=== PATIENT | female | born 1960 | race Caucasian/White ===

== ENCOUNTER 2017-02-14 17:26 | Emergency (ER) | payer MEDICARE, OTHER ==
[2017-02-14 17:30] VITALS: TEMP 98.1
[2017-02-14] MEDS ORDERED: Acetaminophen-Codeine 300-30mg TAB PO STA (18:24)
--- NOTE | 2017-02-14 18:29 | ED ---
Fall HPI - General Chief Complaint: Fall Stated Complaint: Fall Time Seen by Provider: 02/14/17 17:39 Source: patient, RN notes reviewed Mode of arrival: ambulatory - History of Present Illness Initial Comments: Patient is a 56-year-old female with history of MS presents to the emergency room for evaluation of fall injury. Patient states she was walking out her patio and her leg gave out and she fell backwards onto her head and right arm. Patient denies loss of conscious. Patient states she feels a small bump on the back of her head with a slight headache. Patient denies neck pain. Patient denies dizziness, changes in vision, nausea, vomiting. Patient states she is also having right forearm, wrist and hand pain. Patient states pain is worse when she tries to supinate her wrist. Patient states she noticed swelling in her hand. Patient denies numbness or tingling in her fingers. Patient denies any other injuries during incident. - Related Data Home Medications Medication Instructions Recorded Confirmed Ascorbic Acid [Vitamin C] 1,000 mg PO DAILY 02/14/17 02/14/17 Brimonidine Tartrate [Alphagan P 1 drops BOTH EYES BID 02/14/17 02/14/17 0.15% Ophth Soln] Cholecalciferol [Vitamin D3] 1,000 unit PO DAILY 02/14/17 02/14/17 Dicyclomine [Bentyl] 20 mg PO Q6H PRN 02/14/17 02/14/17 Famotidine [Pepcid] 20 mg PO DAILY 02/14/17 02/14/17 Ibuprofen [Motrin] 600 mg PO TID PRN 02/14/17 02/14/17 Sertraline HCl [Zoloft] 150 mg PO DAILY 02/14/17 02/14/17 Teriflunomide [Aubagio] 14 mg PO DAILY 02/14/17 02/14/17 Zolpidem Tartrate [Ambien Cr] 12.5 mg PO HS 02/14/17 02/14/17 buPROPion XL [Wellbutrin Xl] 300 mg PO DAILY 02/14/17 02/14/17 valACYclovir HCL [Valtrex] 500 mg PO DAILY 02/14/17 02/14/17 Allergies Allergy/AdvReac Type Severity Reaction Status Date / Time No Known Allergies Allergy Verified 02/14/17 18:11 Review of Systems ROS Statement: Those systems with pertinent positive or pertinent negative responses have been documented in the HPI. ROS Other: All systems not noted in ROS Statement are negative. Past Medical History Additional Past Medical History / Comment(s): vertigo, narcolepsy, MS History of Any Multi-Drug Resistant Organisms: None Reported Past Surgical History: Hysterectomy, Tubal Ligation Past Psychological History: No Psychological Hx Reported Smoking Status: Former smoker Past Alcohol Use History: Rare Past Drug Use History: None Reported General Exam - General Exam Comments Initial Comments: Sitting in exam room, no acute distress. Limitations: no limitations General appearance: alert, in no apparent distress Head exam: Present: atraumatic, normocephalic, normal inspection Eye exam: Present: normal appearance ENT exam: Present: normal exam Neck exam: Present: normal inspection Respiratory exam: Present: normal lung sounds bilaterally. Absent: respiratory distress Cardiovascular Exam: Present: regular rate, normal rhythm, normal heart sounds Right Forearm Wrist exam: Present: tenderness Hand Wrist exam: Present: tenderness (Distal radial and ulnar pain on palpation) , swelling (Swelling over distal radius). Absent: normal inspection, full ROM ( Pain on supination of the wrist and forearm) Vascular: Present: normal capillary refill (Capillary refill less than 2 seconds ), radial pulse (2+), ulnar pulse (2+) Back exam: Present: normal inspection Neurological exam: Present: alert, oriented X3, CN II-XII intact, normal gait Psychiatric exam: Present: normal affect, normal mood Skin exam: Present: warm, dry, intact, normal color. Absent: rash Course Vital Signs 02/14/17 02/14/17 17:28 19:31 Temperature 98.1 F Pulse Rate 78 Respiratory 20 16 Rate Blood Pressure 124/71 O2 Sat by Pulse 100 Oximetry Procedures - Orthopedic Splinting/Casting Injury #1 Side: right Upper Extremity Injury Location: wrist Upper Extremity Immobilizer: volar splint (Short arm OCL volar splint placed. 3 x 12". Neurovascular function assessed and intact.) Medical Decision Making - Medical Decision Making Patient is a 56-year-old female presents to the emergency room for evaluation of fall injury. Patient has a distal radial fracture of right wrist. Computed tomography scan of brain and C-spine negative for any acute findings. Right wrist placed in a volar splint and a sling. Patient was advised to follow-up with sustainable agriculture specialist tomorrow. Patient states she understands everything that was discussed with her. Return parameters discussed. Case discussed with Dr. Avelar. - Radiology Data Radiology results: report reviewed, image reviewed Disposition Clinical Impression: Fall, Distal radius fracture, right, Head trauma Disposition: HOME SELF-CARE Condition: Good Instructions: Wrist Fracture in Adults (ED), Head Injury (ED) Additional Instructions: Ice on and off for 20 minutes for the next 24-48 hours. Do not get splint wet. Do not remove splint until follow-up with sustainable agriculture specialist. Take ibuprofen as needed for pain. Take Tylenol 3 as needed for severe pain. Please follow-up with sustainable agriculture specialist in 24-48 hours. If new symptoms develop or symptoms worsen, please return to the ER. Referrals: Karyna Carpio DO [Primary Care Provider] - 1-2 days Jm Talley MD [STAFF PHYSICIAN] - 1-2 days Time of Disposition: 20:24
--- NOTE | 2017-02-14 19:33 | XR ---
EXAMINATION TYPE: XR wrist complete RT DATE OF EXAM: 02/14/2017 7:01 PM COMPARISON: NONE HISTORY: Pain, fall TECHNIQUE: 3 views right wrist FINDINGS: There is a transverse fracture through the metaphysis the right wrist. Mild posterior angul ation is present. Soft tissue swelling is present over the dorsum of the wrist. No additional fractures are evident. IMPRESSION: 1. Transverse fracture distal metaphyseal radius.
--- NOTE | 2017-02-14 19:33 | XR ---
EXAMINATION TYPE: XR hand complete RT DATE OF EXAM: 02/14/2017 7:01 PM COMPARISON: NONE HISTORY: Pain TECHNIQUE: 3 views right hand FINDINGS: Right hand appears intact There is a transverse fracture of the metaphysis of the radius. Some minimal posterior angulation is present. Diffuse soft tissue swelling is over the wrist. IMPRESSION: 1. Transverse fracture distal radius right wrist. 2. The hand appears intact. 3. Soft tissue swelling at the wrist.
--- NOTE | 2017-02-14 19:34 | XR ---
EXAMINATION TYPE: XR forearm RT DATE OF EXAM: 02/14/2017 7:01 PM COMPARISON: NONE HISTORY: Pain from fall TECHNIQUE: 2 views right forearm FINDINGS: There is a transverse fracture at the distal metaphyseal radius. There is mild posterior an gulation. Soft tissue swelling is over the wrist. No additional fractures are evident. Radius aligns normally with the humerus. Anterior fat pad is nor mal. IMPRESSION: 1. Transverse fracture distal metaphyseal radius.
--- NOTE | 2017-02-14 20:19 | CT ---
EXAMINATION TYPE: CT brain gabino wo con DATE OF EXAM: 02/14/2017 7:55 PM COMPARISON: NONE HISTORY: Fall with possible injury today CT DLP: 1329.3 mGycm, Automated exposure control for dose reduction was used. CONTRAST: Patient injected with 0 mL of Omnipaque 300. CT of the brain is performed utilizing 3 mm thick sections through the posterior fossa and 3 mm thick sections through the remaining calvarium. Study is performed within 24 hours of arrival to the hospital. No abnormal hyperdensity is present to suggest an acute intracranial hemorrhage. No mass lesion is evident. No acute infarcts are evident. Ventricles and sulci are appropriate for the patient age. Paranasal sinuses and mastoid air cells within the [id number] are clear. IMPRESSIONS: 1. Normal CT brain. CT cervical spine. COMPARISON: None CT of the cervical spine is performed in the axial plane at 2 mm thick sections. Reconstructed image s in the coronal, and sagittal plane are reviewed on the computer. No acute fractures are evident. There is a slight kyphosis centered at approximately C6. Mild diffuse disc space narrowing. Vertebral body heights are preserved. Minimal endplate spurring is present at C3-4 with mild left uncovertebral joint hypertrophy contribut ing to mild foraminal narrowing on the left. Some uncovertebral joint hypertrophy is present C4-5 C5- 6. This is causing some mild left C5-6 foraminal narrowing. No neural foraminal stenosis is evident. IMPRESSIONS: 1. Mild kyphosis. 2. Mild degenerative disc changes. 3. Mild foraminal narrowing discussed above
[2017-02-14] MEDS ORDERED: ACET/COD 300 MG/30 MG STARTER PACK 6 TAB BTL PO STA (20:25)
[2017-02-14 20:55] VITALS: BP 117/65; PULSE 65; RESP 18
== END 2017-02-14 20:55 | disposition home or self-care (01) ==
LOC: EC 17:26
DX: S52.501A Unspecified fracture of the lower end of right radius, initial encounter for closed fracture (principal); W18.00XA Striking against unspecified object with subsequent fall, initial encounter; Y92.009 Unspecified place in unspecified non-institutional (private) residence as the place of occurrence of the external cause; Z87.891 Personal history of nicotine dependence; Z79.899 Other long term (current) drug therapy
CPT/HCPCS: 29125; 70450; 72125; 99284

== ENCOUNTER 2022-06-15 04:55 | Emergency (ER) | payer MEDICARE, OTHER ==
[2022-06-15] MEDS ORDERED: DEXAMETHASONE SOD PHOSPHATE 10 MG/ML 1 ML VIAL IV STA (05:08)
[2022-06-15 05:23] VITALS: TEMP 97.9
--- NOTE | 2022-06-15 05:51 | CT ---
EXAMINATION TYPE: CT brain gaibno johnson DATE OF EXAM: 06/15/2022 COMPARISON: 02/14/2017 HISTORY: head injury/ headache CT DLP: 1296.7 mGycm Automated exposure control for dose reduction was used. Images of the brain and cervical spine obtained with no contrast. Ventricles and sulci appear normal. There is no mass effect or midline shift. No sign of intracranial hemorrhage. The calvarium is intact. There is normal aeration of the mastoid sinuses. Skull base is intact. The cervical vertebra show fairly normal alignment. There is minimal 2 mm subluxation at C4-5. [employer] ior elements are intact. There is hypertrophic mild cervical facet arthropathy. Prevertebral soft tis sues are intact. No fracture seen. IMPRESSION: Negative CT scan of the brain. Mild spondylotic changes in the cervical spine. No fracture. Mild degenerative subluxation at C4-5.
[2022-06-15 05:54] LABS: African American GFR (CKD) >90 (>60 ml/min/1.73 sqM); Anion Gap 6 mmol/L; Blood Urea Nitrogen 6 mg/dL (7-17); Calcium 9.1 mg/dL (8.4-10.2); Carbon Dioxide 28 mmol/L (22-30); Chloride 104 mmol/L (98-107); Glucose 131 mg/dL (74-99); Non-African American GFR(CKD) 78 (>60 ml/min/1.73 sqM); Potassium 3.6 mmol/L (3.5-5.1); Sodium 138 mmol/L (137-145)
[2022-06-15] MEDS ORDERED: MORPHINE SULFATE 4 MG/ML SYRINGE IV STA (05:54)
[2022-06-15 05:56] LABS: INR 0.9 (<1.2); Partial Thromboplastin Time 24.6 sec (22.0-30.0)
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
[2022-06-15 05:57] LABS: Basophils % (A) 1 %; Eosinophils % (A) 1 %; HCT 38.3 % (34.0-46.0); Lymphocytes # (A) 0.2 k/uL (1.0-4.8); Lymphocytes % (A) 5 %; MCH 31.6 pg (25.0-35.0); MCHC 34.1 g/dL (31.0-37.0); MCV 92.9 fL (80.0-100.0); Mean Platelet Volume 6.7; Monocytes # (A) 0.2 k/uL (0-1.0); Monocytes % (A) 7 %; Neutrophils # (A) 2.8 k/uL (1.3-7.7); Neutrophils % (A) 84 %; Platelet Count 155 k/uL (150-450); RBC 4.12 m/uL (3.80-5.40); RDW 12.6 % (11.5-15.5); WBC 3.3 k/uL (3.8-10.6)
[2022-06-15] MEDS ORDERED: ONDANSETRON 4 MG/2 ML VIAL IVP STA (05:59)
[2022-06-15] MEDS ORDERED: SODIUM CHLORIDE 0.9% 1,000 ML IV STA (05:59)
[2022-06-15] MEDS ORDERED: diphenhydrAMINE 50 MG/ML 1 ML VIAL IVP STA (05:59)
[2022-06-15] MEDS ORDERED: KETOROLAC 15 MG/ML 1 ML VIAL IVP STA (05:59)
--- NOTE | 2022-06-15 06:48 | ED ---
Medical Decision Making - Medical Decision Making Patient is brought to be discharge in there is concern that considered patient's age and presentation that there is some suspicion that her symptoms are from for arteritis. ESR and CRP levels were sent. - Lab Data Result diagrams: 06/15/22 05:14 06/15/22 05:14 Lab Results 06/15/22 06/15/22 06/15/22 Range/Units 05:14 05:14 05:14 WBC 3.3 L (3.8-10.6) k/uL RBC 4.12 (3.80-5.40) m/uL Hgb 13.0 (11.4-16.0) gm/dL Hct 38.3 (34.0-46.0) % MCV 92.9 (80.0-100.0) fL MCH 31.6 (25.0-35.0) pg MCHC 34.1 (31.0-37.0) g/dL RDW 12.6 (11.5-15.5) % Plt Count 155 (150-450) k/uL MPV 6.7 Neutrophils % 84 % Lymphocytes % 5 % Monocytes % 7 % Eosinophils % 1 % Basophils % 1 % Neutrophils # 2.8 (1.3-7.7) k/uL Lymphocytes # 0.2 L (1.0-4.8) k/uL Monocytes # 0.2 (0-1.0) k/uL Eosinophils # 0.0 (0-0.7) k/uL Basophils # 0.0 (0-0.2) k/uL PT 10.0 (9.0-12.0) sec INR 0.9 (<1.2) APTT 24.6 (22.0-30.0) sec Sodium 138 (137-145) mmol/L Potassium 3.6 (3.5-5.1) mmol/L Chloride 104 (98-107) mmol/L Carbon Dioxide 28 (22-30) mmol/L Anion Gap 6 mmol/L BUN 6 L (7-17) mg/dL Creatinine 0.82 (0.52-1.04) mg/dL Est GFR (CKD-EPI)AfAm >90 (>60 ml/min/1.73 sqM) Est GFR (CKD-EPI)NonAf 78 (>60 ml/min/1.73 sqM) Glucose 131 H (74-99) mg/dL Calcium 9.1 (8.4-10.2) mg/dL Disposition Clinical Impression: Headache Disposition: HOME SELF-CARE Condition: Fair Instructions (If sedation given, give patient instructions): Acute Headache (ED) Referrals: Karyna Carpio DO [Primary Care Provider] - 1-2 days
[2022-06-15] MEDS ORDERED: MORPHINE SULFATE 4 MG/ML SYRINGE IVP STA (08:19)
[2022-06-15 08:52] VITALS: BP 148/92; PULSE 61; RESP 16
== END 2022-06-15 08:42 | disposition home or self-care (01) ==
LOC: EC 04:55
DX: R51.9 Headache, unspecified (principal)
CPT/HCPCS: 36415; 80048; 85652; 85025; 85610; 85730; 86140; 72125; 70450; 99284; 96374; 96375 ×4; 96361; J2270; J1200; J1100; J2405; J1885; 96376

== ENCOUNTER 2022-07-24 16:44 | Inpatient (IN) | payer MEDICARE, OTHER ==
[2022-07-24] MEDS ORDERED: MORPHINE SULFATE 4 MG/ML SYRINGE IV STA (17:20)
[2022-07-24] MEDS ORDERED: ACETAMINOPHEN TAB 325 MG TAB PO PRN (17:31)
[2022-07-24] MEDS ORDERED: HYDROmorphone 0.5 MG/0.5 ML SYRINGE IVP PRN (17:31)
[2022-07-24] MEDS ORDERED: NALOXONE 0.4 MG/ML 1 ML VIAL IV PRN (17:31)
--- NOTE | 2022-07-24 17:36 | ED ---
General Adult HPI - General Chief complaint: Skin/Abscess/Foreign Body Stated complaint: Shingles Time Seen by Provider: 07/24/22 16:49 Source: patient, RN notes reviewed Mode of arrival: ambulatory Limitations: no limitations - History of Present Illness Initial comments: Patient is a pleasant 61-year-old female presenting to the emergency department with concern for pain right side of the face with eye involvement. Patient has been diagnosed with shingles. Patient has had treatment with acyclovir already. Patient is on there, and [place] at home however still having pain. Patient does have some blurred vision of the right eye which has been persistent. Patient has seen ophthalmology and followed up with them today. Secondary to patient still having pain in symptoms she was advised to come to the emergency department. Ophthalmology requested Dr. Long and family requests him as well. - Related Data Home Medications Medication Instructions Recorded Confirmed Ascorbic Acid [Vitamin C] 1,000 mg PO DAILY 02/14/17 02/14/17 Brimonidine Tartrate [Alphagan P 1 drops BOTH EYES BID 02/14/17 02/14/17 0.15% Ophth Soln] Cholecalciferol [Vitamin D3] 1,000 unit PO DAILY 02/14/17 02/14/17 Dicyclomine [Bentyl] 20 mg PO Q6H PRN 02/14/17 02/14/17 Famotidine [Pepcid] 20 mg PO DAILY 02/14/17 02/14/17 Ibuprofen [Motrin] 600 mg PO TID PRN 02/14/17 02/14/17 Sertraline HCl [Zoloft] 150 mg PO DAILY 02/14/17 02/14/17 Teriflunomide [Aubagio] 14 mg PO DAILY 02/14/17 02/14/17 Zolpidem Tartrate [Ambien Cr] 12.5 mg PO HS 02/14/17 02/14/17 buPROPion XL [Wellbutrin Xl] 300 mg PO DAILY 02/14/17 02/14/17 valACYclovir HCL [Valtrex] 500 mg PO DAILY 02/14/17 02/14/17 Allergies Allergy/AdvReac Type Severity Reaction Status Date / Time No Known Allergies Allergy Verified 07/24/22 16:53 Review of Systems ROS Statement: Those systems with pertinent positive or pertinent negative responses have been documented in the HPI. ROS Other: All systems not noted in ROS Statement are negative. Constitutional: Denies: fever Eyes: Reports: as per HPI, eye pain ENT: Denies: ear pain Respiratory: Denies: cough Cardiovascular: Denies: chest pain Endocrine: Denies: fatigue Gastrointestinal: Denies: abdominal pain Genitourinary: Denies: dysuria Musculoskeletal: Denies: back pain Skin: Reports: as per HPI, rash Neurological: Denies: weakness Past Medical History Additional Past Medical History / Comment(s): vertigo, narcolepsy, MS History of Any Multi-Drug Resistant Organisms: None Reported Past Surgical History: Hysterectomy, Tubal Ligation Past Psychological History: No Psychological Hx Reported Smoking Status: Former smoker Past Alcohol Use History: Rare Past Drug Use History: None Reported General Exam Limitations: no limitations General appearance: alert, in no apparent distress Head exam: Present: atraumatic Eye exam: Present: other (Right lid is slightly droopy) Neck exam: Present: normal inspection Respiratory exam: Present: normal lung sounds bilaterally Cardiovascular Exam: Present: regular rate, normal rhythm Neurological exam: Present: alert Psychiatric exam: Present: normal affect, normal mood Skin exam: Present: rash (Right forehead with erythematous rash with some scab formation consistent with patient's diagnosis of shingles) Course Vital Signs 07/24/22 16:49 Temperature 97.9 F Pulse Rate 75 Respiratory 18 Rate Blood Pressure 154/98 O2 Sat by Pulse 95 Oximetry Medical Decision Making - Medical Decision Making Patient updated on plan. Case was discussed with Dr. Long who will admit. Disposition Clinical Impression: Herpes zoster ophthalmicus Disposition: ADMITTED IP TO THIS [facility] Condition: Serious Is patient prescribed a controlled substance at d/c from ED?: No Referrals: Karyna Carpio DO [Primary Care Provider] - 1-2 days Time of Disposition: 17:36
[2022-07-24] MEDS ORDERED: ACYCLOVIR SODIUM 650 MG in SODIUM CHLORIDE 0.9% 100 ML IVPB STA (17:39)
[2022-07-24 18:02] LABS: Basophils % (A) 1 %; Eosinophils # (A) 0.1 k/uL (0-0.7); Eosinophils % (A) 2 %; Lymphocytes # (A) 0.6 k/uL (1.0-4.8); Lymphocytes % (A) 23 %; MCH 33.7 pg (25.0-35.0); MCHC 34.3 g/dL (31.0-37.0); Mean Platelet Volume 6.9; Monocytes # (A) 0.2 k/uL (0-1.0); Monocytes % (A) 8 %; Neutrophils # (A) 1.9 k/uL (1.3-7.7); Neutrophils % (A) 67 %; Platelet Count 168 k/uL (150-450); RBC 3.87 m/uL (3.80-5.40); WBC 2.9 k/uL (3.8-10.6)
[2022-07-24 18:07] LABS: MCV 98.3 fL (80.0-100.0)
[2022-07-24 18:11] LABS: African American GFR (CKD) >90 (>60 ml/min/1.73 sqM); Anion Gap 11 mmol/L; Blood Urea Nitrogen 9 mg/dL (7-17); Calcium 9.3 mg/dL (8.4-10.2); Carbon Dioxide 26 mmol/L (22-30); Chloride 97 mmol/L (98-107); Glucose 93 mg/dL (74-99); Non-African American GFR(CKD) >90 (>60 ml/min/1.73 sqM); Potassium 4.4 mmol/L (3.5-5.1); Sodium 134 mmol/L (137-145)
[2022-07-24] MEDS ORDERED: IBUPROFEN 600 MG TAB PO PRN (20:34)
[2022-07-24] MEDS ORDERED: NON FORMULARY DRUG (Pregabalin [Lyrica] 200 MG Capsule) PO SCH (22:00)
--- NOTE | 2022-07-24 22:35 | P.HPIM ---
History of Present Illness H&P Date: 07/24/22 Chief Complaint: Pain right forehead This is a very pleasant 70-year-old patient, with history of MS, narcolepsy, depression, insomnia. Patient developed herpes zoster what appears to be in the V1 dermatome and affecting the right eye. Episode started around June 17. Yonatan mast has been getting valacyclovir. Patient presents the ER with significant pain/postherpetic neuralgia. Not controlled with Lyrica 200 mg 3 times a day. Patient has decreased vision out of the right eye. She is on eyedrops. Patient is tried on the modalities of pain control including heat and ice pack. Not a much of. Help. Currently getting some Dilaudid. Review of systems: GEN.: Tired EYES: Decreased vision right eye HEENT: Pain on the right scalp NECK: None RESPIRATORY: None CARDIOVASCULAR: None GASTROINTESTINAL: None GENITOURINARY: None MUSCULOSKELETAL: Joint pains LYMPHATICS: None HEMATOLOGICAL: None PSYCHIATRY: Anxious NEUROLOGICAL: None Past medical history to include: Narcolepsy, multiple sclerosis, depression Social history: Lives with . Ex-smoker. Alcohol rarely. Family history: Reviewed, noncontributory to presentation Physical examination: VITAL SIGNS: 97.9, 75, 18, 150/98, 95% room air GENERAL: BMI 23.1, laying in bed awake. EYES: Pupils equal. Conjunctiva normal. HEENT: Ptosis of the right eye. Some area of discoloration in the V1 distributi on.. NECK: JVD not raised; masses not palpable. HEART: First and second heart sounds are normal; no edema. LUNGS: Respiratory rate normal; clear to auscultation. ABDOMEN: Soft, nontender, liver spleen not palpable, no masses palpable. PSYCH: Alert and oriented x3; mood and affect normal. MUSCULOSKELETAL:No Clubbing/cyanosis;muscles-grossly intact NEUROLOGICAL: Cranial nerves grossly intact; no facial asymmetry, power and sensation grossly intact. Patient is a bit forgetful missing words when she talks. LYMPHATICS: No lymph nodes palpable in the axilla and neck INVESTIGATIONS, reviewed in the clinical context: WBC 2.9 hemoglobin 13 platelets 168 potassium 4.4 creatinine 0.71 Assessment and plan: -Acute on chronic postherpetic neuralgia, uncontrolled Patient is getting Lyrica 200 mg 3 times a day. Current IVP medication. Discussed with patient. May try outpatient acupuncture. Patient has tried different modalities. LAD some NSAID. -Multiple sclerosis -Depression otherwise specified Wellbutrin, Zoloft -Chronic insomnia Continue current medications. Including IV Dilaudid. Add naproxen 250 mg every 8. Subcu Lovenox for DVT prophylaxis. Care was discussed with the patient. Past Medical History Additional Past Medical History / Comment(s): vertigo, narcolepsy, MS History of Any Multi-Drug Resistant Organisms: None Reported Past Surgical History: Hysterectomy, Tubal Ligation Past Psychological History: No Psychological Hx Reported Smoking Status: Former smoker Past Alcohol Use History: Rare Past Drug Use History: None Reported Medications and Allergies Home Medications Medication Instructions Recorded Confirmed Type Ascorbic Acid [Vitamin C] 1,000 mg PO DAILY 02/14/17 07/24/22 History Brimonidine Tartrate [Alphagan P 1 drops BOTH EYES BID 02/14/17 07/24/22 History 0.15% Ophth Soln] Famotidine [Pepcid] 20 mg PO DAILY 02/14/17 07/24/22 History Ibuprofen [Motrin] 600 mg PO TID PRN 02/14/17 07/24/22 History buPROPion XL [Wellbutrin Xl] 300 mg PO DAILY 02/14/17 07/24/22 History Amitriptyline HCl [Elavil] 20 mg PO HS 07/24/22 07/24/22 History Cholecalciferol [Vitamin D3 (25 25 mcg PO DAILY 07/24/22 07/24/22 History Mcg = 1000 Iu)] Erythromycin Ophth Oint [Romycin 1 applic RIGHT EYE BID 07/24/22 07/24/22 History Ophth Oint] Fludrocortisone [Florinef] 0.1 mg PO HS 07/24/22 07/24/22 History Galcanezumab-Gnlm [Emgality Pen] 120 mg SQ QMONTHLY 07/24/22 07/24/22 History HYDROcodone/APAP 5-325MG [[place] 1 tab PO Q4HR PRN 07/24/22 07/24/22 History 5-325] Loperamide [Imodium] 4 mg PO DAILY 07/24/22 07/24/22 History Pregabalin [Lyrica] 200 mg PO TID 07/24/22 07/24/22 History Sertraline [Zoloft] 150 mg PO DAILY 07/24/22 07/24/22 History prednisoLONE ACETATE 1% OPHTH 1 drops RIGHT EYE BID 07/24/22 07/24/22 History [Pred Forte 1%] valACYclovir HCL [Valacyclovir] 1,000 mg PO BID 07/24/22 07/24/22 History Allergies Allergy/AdvReac Type Severity Reaction Status Date / Time No Known Allergies Allergy Verified 07/24/22 16:53 Physical Exam Vitals: Vital Signs Temp Pulse Resp BP Pulse Ox 07/24/22 19:13 77 16 159/97 96 07/24/22 16:49 97.9 F 75 18 154/98 95 Intake and Output 07/24/22 07/24/22 07/24/22 06:59 14:59 22:59 Other: Weight 64.864 kg Results CBC & Chem 7: 07/24/22 17:42 07/24/22 17:42 Labs: Abnormal Lab Results - Last 24 Hours (Table) 07/24/22 07/24/22 Range/Units 17:42 17:42 WBC 2.9 L (3.8-10.6) k/uL Lymphocytes # 0.6 L (1.0-4.8) k/uL Sodium 134 L (137-145) mmol/L Chloride 97 L (98-107) mmol/L
[2022-07-24] MEDS: prednisoLONE ACETATE 1% OPHTH DROPS 5 ML BTL RIGHT EYE SCH (22:37)
[2022-07-24] MEDS: AMITRIPTYLINE HCL 10 MG TAB PO SCH (22:37)
[2022-07-24] MEDS: PREGABALIN 100 MG CAP PO SCH (22:37)
[2022-07-24] MEDS: FLUDROCORTISONE 0.1 MG TAB PO SCH (22:37)
[2022-07-24] MEDS: ERYTHROMYCIN 5 MG/GM OPHTH OINT 3.5 GM TUBE RIGHT EYE SCH (22:38)
[2022-07-24] MEDS: HYDROmorphone 1 MG/ML 1 ML SYRINGE IVP PRN (22:40)
[2022-07-24] MEDS: BRIMONIDINE TARTRATE 0.2% DROPS 5 ML BTL BOTH EYES SCH (22:48)
[2022-07-24] MEDS: ENOXAPARIN 40 MG/0.4 ML SYRINGE SQ SCH (22:53)
[2022-07-24] MEDS: NAPROXEN 250 MG TAB PO SCH (22:54)
[2022-07-25] MEDS: ACYCLOVIR SODIUM 650 MG in SODIUM CHLORIDE 0.9% 100 ML IV SCH ×2 (00:38→08:28)
[2022-07-25] MEDS: HYDROcodone/APAP 5-325MG 1 EACH TAB PO PRN ×2 (08:27→18:10)
[2022-07-25] MEDS: CHOLECALCIFEROL 25 MCG (1000 IU) TABLET PO SCH (08:27)
[2022-07-25] MEDS: PREGABALIN 100 MG CAP PO SCH ×3 (08:27→20:15)
[2022-07-25] MEDS: SERTRALINE 50 MG TAB PO SCH (08:27)
[2022-07-25] MEDS: buPROPion XL 300 MG TAB.ER.24H PO SCH (08:27)
[2022-07-25] MEDS: LOPERAMIDE 2 MG CAP PO SCH (08:28)
[2022-07-25] MEDS: FAMOTIDINE 20 MG TAB PO SCH (08:28)
[2022-07-25] MEDS: ASCORBIC ACID 500 MG TAB PO SCH (08:28)
[2022-07-25] MEDS: ENOXAPARIN 40 MG/0.4 ML SYRINGE SQ SCH (08:28)
[2022-07-25] MEDS: BRIMONIDINE TARTRATE 0.2% DROPS 5 ML BTL BOTH EYES SCH ×2 (08:29→20:17)
[2022-07-25] MEDS: NAPROXEN 250 MG TAB PO SCH ×3 (08:29→20:14)
[2022-07-25] MEDS: prednisoLONE ACETATE 1% OPHTH DROPS 5 ML BTL RIGHT EYE SCH ×2 (08:35→20:17)
[2022-07-25] MEDS ORDERED: SERTRALINE 100 MG TAB PO SCH (09:00)
[2022-07-25] MEDS: HYDROmorphone 1 MG/ML 1 ML SYRINGE IVP PRN ×2 (09:42→16:24)
[2022-07-25] MEDS: ERYTHROMYCIN 5 MG/GM OPHTH OINT 3.5 GM TUBE RIGHT EYE SCH ×2 (09:42→20:17)
--- NOTE | 2022-07-25 12:57 | P.CNNES ---
History of Present Illness Consult date: 07/25/22 Requesting physician: Dorota Hong Reason for Consult: occular singles History of Present Illness: This is a 61-year-old woman who presented emergency department with recent history shingle over the right side of face who present for continue pain over the right side of face. is at bedside. It seems the patient had Shingle of the right side of face near 06/16/2022 and had rash on right side of V1/V2 disturbution with visual disturbance of right eye, ringing of ear. She was evaluated at [facility] and was started on IV Acyclovir and Lyrica then was transitioned to Valcylovir and continues to be on anit-viral medication. Patient stated that prior to the incident about 2 days her sister was on the ladder and fell on her and then 2 days later the patient broke out with the rash over the right side of face She had recent MRI Brain w/ and w/o at [facility] as outpatient and does not know result. She continues to have pain over the right sided of face. She was evaluated by conference planning manager recently and it was recommended the patient to come to the hospital for further evaluation. Patient stated that the she continues to have pain over the right side and sometimes it feels numb but was mostly pain. She is on Lyrica, Elavil and she does not feel the pain is controlled. She denies any focal weakness, any difficulty getting her words out, any difficulty swallowing. Denies any further ringing of the ears or hearing loss. Denies any numbness other than possibly the over the right side of the face. The patient did show me a picture of what her rash looked like on presentation compared to now and now looks drastically better. She has a come on up appointment with a neurologist over at [facility]. Patient does have history of multiple sclerosis. Some of the workup during his hospital visit consisted of: Patient is afebrile White blood cell is 2.9 thousand otherwise rest of the CBC with differential is unremarkable Review of Systems Review of system: The 12 point system was reviewed and apparent positive and negative per HPI. Past Medical History Past Medical History: Eye Disorder, Osteoarthritis (OA), Pneumonia, Thyroid Disorder Additional Past Medical History / Comment(s): vertigo, narcolepsy, MS, heart murmur, glucoma, biopsy of thyroid History of Any Multi-Drug Resistant Organisms: None Reported Past Surgical History: Hysterectomy, Tubal Ligation Additional Past Surgical History / Comment(s): Lassix eye surgery Past Anesthesia/Blood Transfusion Reactions: No Reported Reaction Past Psychological History: Anxiety, Depression Smoking Status: Former smoker Past Alcohol Use History: Rare Past Drug Use History: None Reported Medications and Allergies Home Medications Medication Instructions Recorded Confirmed Type Ascorbic Acid [Vitamin C] 1,000 mg PO DAILY 02/14/17 07/24/22 History Brimonidine Tartrate [Alphagan P 1 drops BOTH EYES BID 02/14/17 07/24/22 History 0.15% Ophth Soln] Famotidine [Pepcid] 20 mg PO DAILY 02/14/17 07/24/22 History Ibuprofen [Motrin] 600 mg PO TID PRN 02/14/17 07/24/22 History buPROPion XL [Wellbutrin Xl] 300 mg PO DAILY 02/14/17 07/24/22 History Amitriptyline HCl [Elavil] 20 mg PO HS 07/24/22 07/24/22 History Cholecalciferol [Vitamin D3 (25 25 mcg PO DAILY 07/24/22 07/24/22 History Mcg = 1000 Iu)] Erythromycin Ophth Oint [Romycin 1 applic RIGHT EYE BID 07/24/22 07/24/22 History Ophth Oint] Fludrocortisone [Florinef] 0.1 mg PO HS 07/24/22 07/24/22 History Galcanezumab-Gnlm [Emgality Pen] 120 mg SQ QMONTHLY 07/24/22 07/24/22 History HYDROcodone/APAP 5-325MG [[place] 1 tab PO Q4HR PRN 07/24/22 07/24/22 History 5-325] Loperamide [Imodium] 4 mg PO DAILY 07/24/22 07/24/22 History Pregabalin [Lyrica] 200 mg PO TID 07/24/22 07/24/22 History Sertraline [Zoloft] 150 mg PO DAILY 07/24/22 07/24/22 History prednisoLONE ACETATE 1% OPHTH 1 drops RIGHT EYE BID 07/24/22 07/24/22 History [Pred Forte 1%] valACYclovir HCL [Valacyclovir] 1,000 mg PO BID 07/24/22 07/24/22 History Allergies Allergy/AdvReac Type Severity Reaction Status Date / Time No Known Allergies Allergy Verified 07/24/22 16:53 Physical Examination - Vital Signs Vital Signs: Vital Signs Temp Pulse Pulse Resp BP BP Pulse Ox 07/25/22 07:38 97.8 F 66 17 120/66 95 07/25/22 01:19 97.7 F 61 17 103/63 93 L 07/24/22 20:03 97.8 F 70 18 128/74 97 07/24/22 20:00 70 18 07/24/22 19:13 77 16 159/97 96 07/24/22 16:49 97.9 F 75 18 154/98 95 Intake and Output 07/24/22 07/25/22 07/25/22 22:59 06:59 14:59 Intake Total 240 Balance 240 Intake: Oral 240 Other: Voiding Method Toilet # Voids 2 Weight 64.864 kg GENERAL: The patient is lying in bed and is not in acute distress. CHEST: The heart rate is regular rate rhythm. No murmurs to auscultation. LUNG: Clear to auscultation bilaterally no wheezing noted throughout. Not labored breathing. ABDOMEN/GI: Bowel sounds present in all 4 quadrants. No tenderness to palpation throughout. NEUROLOGICAL: Higher mental function: The patient is awake, alert, oriented to self, place and time. Patient is following commands. No aphasia and no neglect. Cranial nerves: The pupils are round, right eye is 6mm and non reactive (but had her eye dilated by conference planning manager) while left is 3mm and reactive. She has ptosis of the right eye. EOM has mild to subtle nystagmus looking to right but otherwise normal. accommodation. Visual mckeon are full to confrontation throughout. Facial sensation is normal to touch throughout but has pain to touch over V1 and V2. Has erthryematous rash mostly V1>V2 right side. The facial strength is normal throughout. Hearing is normal bilaterally to hand rub. Tongue is midline and moved [id number] without any difficulty. No dysarthria is noted. Shoulder shrug is normal bilaterally. Motor: The strength is 5 over 5 throughout. Normal tone and bulk. Cerebellum: Normal finger to nose heel to nieves bilaterally. Sensation: Sensation is normal to touch throughout. Reflexes (right/left): 2+ throughout. Plantars are mute bilaterally. Results - Laboratory Findings CBC and BMP: 07/24/22 17:42 07/24/22 17:42 Abnormal Lab Findings: Abnormal Labs 07/24/22 07/24/22 17:42 17:42 WBC 2.9 L Lymphocytes # 0.6 L Sodium 134 L Chloride 97 L Assessment and Plan Assessment: Postherpetic neuralgia Right Ocular shingles (herpes-zoster over right V1/V2 and has symptoms since close to 06/16/22 and has be on antiviral since than). History of narcolepsy History of multiple sclerosis Plan: Patient is currently on acyclovir 650mg every 8 hours. She is on Elavil 20 mg daily at bedtime, Lyrica 200 mg a tablet 3 times a day and she is on Dilaudid when necessary. Patient continues to have pain recommend the gabapentin 300 mg a tablet 3 times a day instead of Lyrica. Gabapentin can be transitioned to 600mg 1 tab tid. We are trying to obtain the recent MRI Brain with /and w/o she had at [facility]. In the meantime ophthalmology team ordered MRA MRV of the head I consulted ID team for her shingle management. Ophthalmology team is on board We'll defer the rest of medical management to the primary team The plan is discussed with patient, her (who is at bedside) and primary team. Thank you for the consultation Justin Maria M.D. Neuro-hospitalist Time with Patient: Greater than 30
--- NOTE | 2022-07-25 15:58 | MR ---
EXAMINATION TYPE: MR venography head wo con DATE OF EXAM: 07/25/2022 COMPARISON: None HISTORY: Third nerve palsy, ptosis rt eye, headache, shingles. MR venographic images were obtained of the intracerebral vessels. There is venous flow demonstrated in the sagittal sinus and sigmoid sinuses. There is bilateral venou s flow in the internal jugular veins. No evidence of sinus vein thrombosis. No evidence of a filling defect. There is limited evaluation of the transverse sinuses. No evidence of sinus vein thrombosis. Limited evaluation of the transverse sinuses.
--- NOTE | 2022-07-25 16:30 | MR ---
EXAMINATION TYPE: MR angio head wo/w con DATE OF EXAM: 07/25/2022 COMPARISON: None HISTORY: Third nerve palsy, ptosis rt eye, headache, shingles. CONTRAST: Standard multiplanar, multisequence MRI departmental protocol images were obtained without contrast a nd with 7.5 mL intravenous Gadavist gadolinium contrast. There is arterial flow in the anterior middle and posterior cerebral arteries bilaterally. There is a rterial flow in the vertebrobasilar artery system. Left vertebral artery slightly larger than the rig ht. There is flow in both internal carotid arteries. No evidence of intracranial neovascularity. No mass effect. No evidence of hemodynamic stenosis. 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 IMPRESSION: No evidence of hemodynamic stenosis. 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
[2022-07-25] MEDS: AMITRIPTYLINE HCL 10 MG TAB PO SCH (20:16)
--- NOTE | 2022-07-25 20:52 | P.PN ---
Progress Note - Text Progress Note Date: 07/25/22 Chief Complaint: Pain right forehead This is a very pleasant 70-year-old patient, with history of MS, narcolepsy, depression, insomnia. Patient developed herpes zoster what appears to be in the V1 dermatome and affecting the right eye. Episode started around June 17. Patient has been getting valacyclovir. Patient presents the ER with significant pain/postherpetic neuralgia. Not controlled with Lyrica 200 mg 3 times a day. Patient has decreased vision out of the right eye. She is on eyedrops. Patient is tried on the modalities of pain control including heat and ice pack. Not a much of. Help. Currently getting some Dilaudid. July 25: No change in her pain. Discussed with Dr. Maria from neurology. Nothing further to be done in terms of postherpetic neuralgia. Had a lengthy discussion with patient's daughter Monica Swenson. Will DC Dilaudid. Not indicated. I'll set the practice and scope of my experience, alternative medicine CBD oill/acupuncture to be looked into. Questions answered. Active Medications Acetaminophen (Acetaminophen Tab 325 Mg Tab) 650 mg PO Q6HR PRN PRN Reason: Mild Pain or Fever > 100.5 Hydrocodone Bitart/Acetaminophen (Hydrocodone/Apap 5-325mg 1 Each Tab) 1 each PO Q4HR PRN PRN Reason: Pain Last Admin: 07/25/22 18:10 Dose: 1 each Acetazolamide (Acetazolamide 250 Mg Tab) 250 mg PO BID [facility] Stop: 07/29/22 21:01 Amitriptyline HCl (Amitriptyline Hcl 10 Mg Tab) 20 mg PO HS RALF Last Admin: 07/25/22 20:16 Dose: 20 mg Ascorbic Acid (Ascorbic Acid 500 Mg Tab) 1,000 mg PO DAILY [facility] Last Admin: 07/25/22 08:28 Dose: 1,000 mg Brimonidine Tartrate (Brimonidine Tartrate 0.2% Drops 5 Ml Btl) 1 drops BOTH EYES BID [facility] Last Admin: 07/25/22 20:17 Dose: 1 drops Bupropion HCl (Bupropion Xl 300 Mg Tab.Er.24h) 300 mg PO DAILY [facility] Last Admin: 07/25/22 08:27 Dose: 300 mg Cholecalciferol (Cholecalciferol 25 Mcg (1000 Iu) Tablet) 25 mcg PO DAILY [facility] Last Admin: 07/25/22 08:27 Dose: 25 mcg Enoxaparin Sodium (Enoxaparin 40 Mg/0.4 Ml Syringe) 40 mg SQ DAILY [facility] Last Admin: 07/25/22 08:28 Dose: 40 mg Erythromycin (Erythromycin 5 Mg/Gm Ophth Oint 3.5 Gm Tube) 1 applic RIGHT EYE BID [facility] Last Admin: 07/25/22 20:17 Dose: 1 applic Famotidine (Famotidine 20 Mg Tab) 20 mg PO DAILY [facility] Last Admin: 07/25/22 08:28 Dose: 20 mg Fludrocortisone Acetate (Fludrocortisone 0.1 Mg Tab) 0.1 mg PO HS [facility] Last Admin: 07/24/22 22:37 Dose: 0.1 mg Gabapentin (Gabapentin 300 Mg Cap) 300 mg PO TID [facility] Loperamide HCl (Loperamide 2 Mg Cap) 4 mg PO DAILY [facility] Last Admin: 07/25/22 08:28 Dose: 4 mg Naloxone HCl (Naloxone 0.4 Mg/Ml 1 Ml Vial) 0.2 mg IV Q2M PRN PRN Reason: Opioid Reversal Naproxen (Naproxen 250 Mg Tab) 250 mg PO TID [facility] Last Admin: 07/25/22 20:14 Dose: 250 mg Prednisolone Acetate (Prednisolone Acetate 1% Ophth Drops 5 Ml Btl) 1 drops RIGHT EYE BID [facility] Last Admin: 07/25/22 20:17 Dose: 1 drops Sertraline HCl (Sertraline 50 Mg Tab) 150 mg PO DAILY [facility] Last Admin: 07/25/22 08:27 Dose: 150 mg Past medical history to include: Narcolepsy, multiple sclerosis, depression Social history: Lives with . Ex-smoker. Alcohol rarely. Family history: Reviewed, noncontributory to presentation Physical examination: VITAL SIGNS: 97.8, 64, 16, 118/74, 96% room air GENERAL: , laying in bed awake. EYES: Pupils equal. Conjunctiva normal. HEENT: Ptosis of the right eye. Some area of discoloration in the V1 distribution.. NECK: JVD not raised; masses not palpable. HEART: First and second heart sounds are normal; no edema. LUNGS: Respiratory rate normal; clear to auscultation. ABDOMEN: Soft, nontender, liver spleen not palpable, no masses palpable. PSYCH: Alert and oriented x3; mood and affect normal. MUSCULOSKELETAL:No Clubbing/cyanosis;muscles-grossly intact NEUROLOGICAL: Cranial nerves grossly intact; no facial asymmetry, power and sensation grossly intact. bit forgetful missing words when she talks. INVESTIGATIONS, reviewed in the clinical context: Head MRA and head and brain magnetic resonance venography: Unremarkable. 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 WBC 2.9 hemoglobin 13 platelets 168 potassium 4.4 creatinine 0.71 Assessment and plan: -Acute on chronic postherpetic neuralgia, uncontrolled DC Lyrica. Try Neurontin 300 mg 3 times a day.. DC Dilaudid. Not indicated.. May try outpatient acupuncture/CBD ordered. Discussed with daughter.. Continue naproxen. -Chronic Multiple sclerosis. 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 -Depression otherwise specified Wellbutrin, Zoloft -Chronic insomnia Discussed with neurology Dr. Maria this morning. No further intervention from his standpoint. DC Lyrica. Neurontin 300 mg 3 times a day. DC Dilaudid. Care was discussed length with the daughter today. Total time spent about 45 minutes with over 25 minutes of discussion.
[2022-07-25] MEDS: GABAPENTIN 300 MG CAP PO SCH (22:59)
[2022-07-25] MEDS: FLUDROCORTISONE 0.1 MG TAB PO SCH (22:59)
[2022-07-25] MEDS: acetaZOLAMIDE 250 MG TAB PO SCH (22:59)
--- NOTE | 2022-07-26 01:30 | P.CONS ---
History of Present Illness - Reason for Consult Consult date: 07/25/22 - History of Present Illness Patient is a 61-year-old female who was recently admitted at [facility] from June 15 to 2021 with the patient was diagnosed and treated for herpes zoster ophthalmicus and the patient was on IV acyclovir subsequently discharged home on oral with the patient has completed the patient right periorbital swelling or redness has improved however the patient seem to have significant problem with the pain to the right periorbital area in the distribution of her rash patient described the pain to be more of a sharp in nature intensity is almost 10 out of 10 in severity with no radiation patient has been on Lyrica without any improvement for the patient presented to hospital patient denies having any fever or any chills and no fever have been recorded and the patient mention overall rash has almost resolved her main symptom remains to be the pain patient denies having any chest pain or shortness with or cough no nausea vomiting no abdominal apparently diarrhea on presentation to the hospital patient has been afebrile patient was mildly leukopenic with white cou nt 2.9 creatinine was 0.71 patient was started on IV acyclovir infectious disease was consulted for further management Past Medical History Past Medical History: Eye Disorder, Osteoarthritis (OA), Pneumonia, Thyroid Disorder Additional Past Medical History / Comment(s): vertigo, narcolepsy, MS, heart murmur, glucoma, biopsy of thyroid History of Any Multi-Drug Resistant Organisms: None Reported Past Surgical History: Hysterectomy, Tubal Ligation Additional Past Surgical History / Comment(s): Lassix eye surgery Past Anesthesia/Blood Transfusion Reactions: No Reported Reaction Past Psychological History: Anxiety, Depression Smoking Status: Former smoker Past Alcohol Use History: Rare Past Drug Use History: None Reported Medications and Allergies Home Medications Medication Instructions Recorded Confirmed Type Ascorbic Acid [Vitamin C] 1,000 mg PO DAILY 02/14/17 07/24/22 History Brimonidine Tartrate [Alphagan P 1 drops BOTH EYES BID 02/14/17 07/24/22 History 0.15% Ophth Soln] Famotidine [Pepcid] 20 mg PO DAILY 02/14/17 07/24/22 History Ibuprofen [Motrin] 600 mg PO TID PRN 02/14/17 07/24/22 History buPROPion XL [Wellbutrin Xl] 300 mg PO DAILY 02/14/17 07/24/22 History Amitriptyline HCl [Elavil] 20 mg PO HS 07/24/22 07/24/22 History Cholecalciferol [Vitamin D3 (25 25 mcg PO DAILY 07/24/22 07/24/22 History Mcg = 1000 Iu)] Erythromycin Ophth Oint [Romycin 1 applic RIGHT EYE BID 07/24/22 07/24/22 History Ophth Oint] Fludrocortisone [Florinef] 0.1 mg PO HS 07/24/22 07/24/22 History Galcanezumab-Gnlm [Emgality Pen] 120 mg SQ QMONTHLY 07/24/22 07/24/22 History HYDROcodone/APAP 5-325MG [[place] 1 tab PO Q4HR PRN 07/24/22 07/24/22 History 5-325] Loperamide [Imodium] 4 mg PO DAILY 07/24/22 07/24/22 History Pregabalin [Lyrica] 200 mg PO TID 07/24/22 07/24/22 History Sertraline [Zoloft] 150 mg PO DAILY 07/24/22 07/24/22 History prednisoLONE ACETATE 1% OPHTH 1 drops RIGHT EYE BID 07/24/22 07/24/22 History [Pred Forte 1%] valACYclovir HCL [Valacyclovir] 1,000 mg PO BID 07/24/22 07/24/22 History Allergies Allergy/AdvReac Type Severity Reaction Status Date / Time No Known Allergies Allergy Verified 07/24/22 16:53 Physical Exam Vitals: Vital Signs Temp Pulse Pulse Resp BP BP Pulse Ox 07/25/22 07:38 97.8 F 66 17 120/66 95 07/25/22 01:19 97.7 F 61 17 103/63 93 L 07/24/22 20:03 97.8 F 70 18 128/74 97 07/24/22 20:00 70 18 07/24/22 19:13 77 16 159/97 96 07/24/22 16:49 97.9 F 75 18 154/98 95 Intake and Output 07/24/22 07/25/22 07/25/22 22:59 06:59 14:59 Intake Total 240 Balance 240 Intake: Oral 240 Other: Voiding Method Toilet # Voids 2 Weight 64.864 kg Results CBC & Chem 7: 07/24/22 17:42 07/24/22 17:42 Labs: Abnormal Lab Results - Last 24 Hours (Table) 07/24/22 07/24/22 Range/Units 17:42 17:42 WBC 2.9 L (3.8-10.6) k/uL Lymphocytes # 0.6 L (1.0-4.8) k/uL Sodium 134 L (137-145) mmol/L Chloride 97 L (98-107) mmol/L Assessment and Plan Plan: 1patient presented to hospital with right periorbital pain more likely related to postoperative neuralgia in this patient has received more than adequate IV and oral acyclovir with initial diagnosis of herpes zoster Permax more than a month ago currently no clinical evidence of any viral replication or secondary bacterial pneumonia. 2discontinue acyclovir 3-management of underlying pain by the admitting and neurology continue We will follow on clinical condition and cultures to further adjust medication if needed Thank you for this consultation will follow this patient along with you Time with Patient: Greater than 30
[2022-07-26] MEDS: HYDROcodone/APAP 5-325MG 1 EACH TAB PO PRN ×2 (09:14→12:40)
[2022-07-26] MEDS: LOPERAMIDE 2 MG CAP PO SCH (09:16)
[2022-07-26] MEDS: CHOLECALCIFEROL 25 MCG (1000 IU) TABLET PO SCH (09:16)
[2022-07-26] MEDS: ENOXAPARIN 40 MG/0.4 ML SYRINGE SQ SCH (09:16)
[2022-07-26] MEDS: buPROPion XL 300 MG TAB.ER.24H PO SCH (09:16)
[2022-07-26] MEDS: ASCORBIC ACID 500 MG TAB PO SCH (09:16)
[2022-07-26] MEDS: GABAPENTIN 300 MG CAP PO SCH ×2 (09:16→15:16)
[2022-07-26] MEDS: SERTRALINE 50 MG TAB PO SCH (09:16)
[2022-07-26] MEDS: FAMOTIDINE 20 MG TAB PO SCH (09:16)
[2022-07-26] MEDS: NAPROXEN 250 MG TAB PO SCH ×2 (09:17→15:16)
[2022-07-26] MEDS: acetaZOLAMIDE 250 MG TAB PO SCH (09:17)
[2022-07-26] MEDS: ERYTHROMYCIN 5 MG/GM OPHTH OINT 3.5 GM TUBE RIGHT EYE SCH (09:18)
[2022-07-26] MEDS: prednisoLONE ACETATE 1% OPHTH DROPS 5 ML BTL RIGHT EYE SCH (09:18)
[2022-07-26] MEDS: BRIMONIDINE TARTRATE 0.2% DROPS 5 ML BTL BOTH EYES SCH (09:18)
--- NOTE | 2022-07-26 12:22 | P.PN ---
Subjective Progress Note Date: 07/26/22 The patient is seen at bedside and feels her pain over the right side of face is better today compared to initial presentation but has not resolved. Denies of any new neurological issues. Objective - Vital Signs Vital signs: Vital Signs Temp 98.9 F 07/26/22 07:45 Pulse 92 07/26/22 07:45 Resp 17 07/26/22 07:45 BP 116/73 07/26/22 07:45 Pulse Ox 93 L 07/26/22 07:45 FiO2 Intake & Output 07/25/22 07/26/22 07/26/22 18:59 06:59 18:59 Intake Total 840 240 Balance 840 240 Intake: Oral 840 240 Other: Voiding Method Toilet # Voids 3 2 - Exam GENERAL: The patient is lying in bed and is not in acute distress. NEUROLOGICAL: Higher mental function: The patient is awake, alert, oriented to self, place and time. Patient is following commands. No aphasia and no neglect. Cranial nerves: The pupils are round, right eye is 4-5mm while the left is 3-4 and both are reactive to light. Patient has moderate ptosis of the right eye. EOM has mild to subtle nystagmus looking to right but otherwise normal. accommodation. Visual mckeon are full to confrontation throughout. Facial sensation is normal to touch throughout but has pain to touch over V1 and V2. Has erthryematous rash mostly V1>V2 right side. The facial strength is normal throughout. Hearing is normal bilaterally to hand rub. Tongue is midline and moved [id number] without any difficulty. No dysarthria is noted. Shoulder shrug is normal bilaterally. Motor: The strength is 5 over 5 throughout. Normal tone and bulk. Cerebellum: Normal finger to nose bilaterally. Sensation: Sensation is normal to touch throughout. Some of the workup during his hospital visit consisted of: Patient is afebrile White blood cell is 2.9 thousand otherwise rest of the CBC with differential is unremarkable MRA of the head is reported as no evidence of hemodynamic stenosis. 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 MRV is reported as this is an venous flow demonstrated in the sagittal sinus and sigmoid sinus. There is bilateral venous of flow in the internal jugular vein. No evidence of sinus and vein thrombosis. No evidence of a filling defect. There is a limited evaluation of the transverse sinuses. No evidence of sinus vein thrombosis. Limited evaluation of the transverse sinuses. - Labs CBC & Chem 7: 07/24/22 17:42 07/24/22 17:42 Assessment and Plan Assessment: Post-herpetic neuralgia Right Ocular shingles (herpes-zoster over right V1/V2 and has symptoms since close to 06/16/22 and has be on antiviral since than). 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 Has incidental right PARAG aneurysm (2mm). History of narcolepsy History of multiple sclerosis Plan: I.D. is consulted and discontinue Acylovir. She did complete her regimen of Acyclovir. Currently on Gabapentin 300mg 1 tab tid (can be increased to 600mg 1 tab tid), Elavil 20 mg daily at bedtime, [place] 5 PRN for her post-herpetic pain. Consider tramadol PRN, Capsaicin or even Lidocaine 5% patch. We are trying to obtain the recent MRI Brain with /and w/o she had at [facility]. Ophthalmology team is on board We'll defer the rest of medical management to the primary team I highly recommend the patient to follow-up with an ethylbenzene cracking supervisor and neurologist as an outpatient within 1-2 weeks. Recommend the patient follow-up with the neuro interventionalist (Dr. Aron Bradley [phone]) as outpatient for surveillance of small aneurysm of PARAG The plan is discussed with patient. Dr. Jarrett will start neurology service tomorrow Claudia Maria M.D. Neuro-hospitalist Time with Patient: Less than 30
--- NOTE | 2022-07-26 15:13 | P.DS ---
Providers Date of admission: 07/24/22 17:35 Expected date of discharge: 07/26/22 Attending physician: Stoney Long Consults: 07/24/22 17:31 Consult Physician Urgent Consulting Provider: Dorota Hong Consult Reason/Comments: Herpes ophthalmicus Do you want consulting provider notified?: Yes 07/25/22 10:37 Consult Physician Urgent Consulting Provider: Justin Maria Consult Reason/Comments: occular shingles Do you want consulting provider notified?: Yes 07/25/22 11:00 Consult Physician Urgent Consulting Provider: Carly Winkler Consult Reason/Comments: suspected ocular shingles Do you want consulting provider notified?: Yes Primary care physician: Karyna [place] Hospital Course: Chief Complaint: Pain right forehead This is a very pleasant 70-year-old patient, with history of MS, narcolepsy, depression, insomnia. Patient developed herpes zoster what appears to be in the V1 dermatome and affecting the right eye. Episode started around June 17. Patient has been getting valacyclovir. Patient presents the ER with significant pain/postherpetic neuralgia. Not controlled with Lyrica 200 mg 3 times a day. Patient has decreased vision out of the right eye. She is on eyedrops. Patient is tried on the modalities of pain control including heat and ice pack. Not a much of. Help. Currently getting some Dilaudid. July 25: No change in her pain. Discussed with Dr. Maria from neurology. Nothing further to be done in terms of postherpetic neuralgia. Had a lengthy discussion with patient's daughter Monica Swenson. Will DC Dilaudid. Not indicated. I'll set the practice and scope of my experience, alternative medicine CBD oill/acupuncture to be looked into. Questions answered. July 26: Patient was started on Neurontin last night. Pain much better. Discussed with at the bedside. Questions answered. Valacyclovir was discontinued. So was Lyrica. Spoke to patient's daughter Monica on the phone and updated. Patient will follow-up with the crime scene photographer Dr. Hong Discussion and discharge planning more than 35 minutes Past medical history to include: Narcolepsy, multiple sclerosis, depression Social history: Lives with . Ex-smoker. Alcohol rarely. Family history: Reviewed, noncontributory to presentation Physical examination: VITAL SIGNS: 98.9, 92, 17, 116/73, 93% room air GENERAL: Sitting up in bed, more comfortable EYES: Pupils equal. Conjunctiva normal. HEENT: Ptosis of the right eye. Some area of discoloration in the V1 distribution.. NECK: JVD not raised; masses not palpable. HEART: First and second heart sounds are normal; no edema. LUNGS: Respiratory rate normal; clear to auscultation. ABDOMEN: Soft, nontender, liver spleen not palpable, no masses palpable. PSYCH: Alert and oriented x3; mood and affect normal. MUSCULOSKELETAL:No Clubbing/cyanosis;muscles-grossly intact NEUROLOGICAL: Cranial nerves grossly intact; no facial asymmetry, power and sensation grossly intact. bit forgetful missing words when she talks. INVESTIGATIONS, reviewed in the clinical context: Head MRA and head and brain magnetic resonance venography: Unremarkable. 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 WBC 2.9 hemoglobin 13 platelets 168 potassium 4.4 creatinine 0.71 Assessment and plan: -Acute on chronic postherpetic neuralgia, better controlled DC Lyrica. Neurontin 300 mg 3 times a day.. Continue naproxen. -Chronic Multiple sclerosis. 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 -Depression otherwise specified Wellbutrin, Zoloft -Chronic insomnia Disposition: Home Plan - Discharge Summary Discharge Rx Participant: No New Discharge Prescriptions: New acetaZOLAMIDE [Diamox] 250 mg PO BID #30 tab Naproxen [Naprosyn] 250 mg PO BID #30 tab Gabapentin [Neurontin] 300 mg PO TID #90 cap Continue Famotidine [Pepcid] 20 mg PO DAILY Brimonidine Tartrate [Alphagan P 0.15% Ophth Soln] 1 drops BOTH EYES BID buPROPion XL [Wellbutrin XL] 300 mg PO DAILY Ascorbic Acid [Vitamin C] 1,000 mg PO DAILY prednisoLONE ACETATE 1% OPHTH [Pred Forte 1%] 1 drops RIGHT EYE BID Erythromycin Ophth Oint [Romycin Ophth Oint] 1 applic RIGHT EYE BID Amitriptyline HCl [Elavil] 20 mg PO HS Loperamide [Imodium] 4 mg PO DAILY Cholecalciferol [Vitamin D3 (25 Mcg = 1000 Iu)] 25 mcg PO DAILY Sertraline [Zoloft] 150 mg PO DAILY HYDROcodone/APAP 5-325MG [[place] 5-325] 1 tab PO Q4HR PRN PRN Reason: Pain Galcanezumab-Gnlm [Emgality Pen] 120 mg SQ QMONTHLY Fludrocortisone [Florinef] 0.1 mg PO HS Discontinued Ibuprofen [Motrin] 600 mg PO TID PRN PRN Reason: Pain valACYclovir HCL [Valacyclovir] 1,000 mg PO BID Pregabalin [Lyrica] 200 mg PO TID Discharge Medication List Ascorbic Acid [Vitamin C] 1,000 mg PO DAILY 02/14/17 [History] Brimonidine Tartrate [Alphagan P 0.15% Ophth Soln] 1 drops BOTH EYES BID 02/14/17 [History] Famotidine [Pepcid] 20 mg PO DAILY 02/14/17 [History] buPROPion XL [Wellbutrin XL] 300 mg PO DAILY 02/14/17 [History] Amitriptyline HCl [Elavil] 20 mg PO HS 07/24/22 [History] Cholecalciferol [Vitamin D3 (25 Mcg = 1000 Iu)] 25 mcg PO DAILY 07/24/22 [History] Erythromycin Ophth Oint [Romycin Ophth Oint] 1 applic RIGHT EYE BID 07/24/22 [History] Fludrocortisone [Florinef] 0.1 mg PO HS 07/24/22 [History] Galcanezumab-Gnlm [Emgality Pen] 120 mg SQ QMONTHLY 07/24/22 [History] HYDROcodone/APAP 5-325MG [[place] 5-325] 1 tab PO Q4HR PRN 07/24/22 [History] Loperamide [Imodium] 4 mg PO DAILY 07/24/22 [History] Sertraline [Zoloft] 150 mg PO DAILY 07/24/22 [History] prednisoLONE ACETATE 1% OPHTH [Pred Forte 1%] 1 drops RIGHT EYE BID 07/24/22 [History] Gabapentin [Neurontin] 300 mg PO TID #90 cap 07/26/22 [Rx] Naproxen [Naprosyn] 250 mg PO BID #30 tab 07/26/22 [Rx] acetaZOLAMIDE [Diamox] 250 mg PO BID #30 tab 07/26/22 [Rx] Follow up Appointment(s)/Referral(s): Dorota Hong MD [STAFF PHYSICIAN] - 1 Week (Please call Wednesday to schedule appointment ) Karyna Carpio DO [Primary Care Provider] - 1-2 days (Please call Wednesday to schedule appointment) Aron Bradley MD [STAFF PHYSICIAN] - 1 Week ([phone] ) Patient Instructions/Handouts: Malka JONES)
[2022-07-26 15:24] VITALS: BP 102/67; PULSE 69; RESP 16; TEMP 98.2
--- NOTE | 2022-07-27 07:46 | CONS ---
CONSULTATION CHIEF COMPLAINT: The patient admitted due to right ocular pain and right herpes zoster. History of medical conditions: Reviewed. History of eye condition: The patient is a chronic patient of MS and was seen several years in [facility] and has been seen for the last 2 weeks every 2 to 3 days for her herpes zoster on the right side, which developed a month ago. The patient is a poor historian about the sequence of her MS and the herpes and the droopy right upper lid. EYE EXAMINATION: Vision; right eye 20/50 with pinhole, left eye 20/30. Extraocular motility was full. Pupil in the right was sluggish. Intra-ocular pressure was 30 mmHg right eye and 18 mmHg left eye. Lens shows opacity in the right eye. The optic disc shows ophthalmoscope. Retina was normal and no vasculitis. . Cornea was clear and conjunctiva was 1+ injection in the right. Left eye looks normal. ASSESSMENT: 1. 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 2. Ptosis, right eye, involving the right upper lid, duration unknown. 3. Multiple sclerosis. 4. Herpes zoster, right side of the face. Her intra-ocular pressure in the right is high. I added Diamox 250 mg b.i.d. for 4 days until seen by her scuba diving instructor in [place] on Wednesday. I would continue the Alphagan twice a day and the Pred Forte eyedrops twice a day for the right eye. I have advised MRA and MRV just to rule out causes for the ptosis and the semi-dilated nonreactive pupil to rule out . A neurologist should see the patient and to follow with her scuba diving instructor on Wednesday. I offered her to see us on Wednesday, but she wanted to follow with her doctor in [place]. I am available to be called anytime if she has any other problems. MMODL / IJN: [id number] /
== END 2022-07-26 15:50 | disposition home or self-care (01) | DRG 74 ==
LOC: EC 16:44 → 4SSUR 17:35
PROVIDERS: ADMIT Hospitalist; ATTEND Hospitalist
DX: B02.29 Other postherpetic nervous system involvement (principal); B02.30 Zoster ocular disease, unspecified; F32.A Depression, unspecified; F51.04 Psychophysiologic insomnia; M19.90 Unspecified osteoarthritis, unspecified site; G35 Multiple sclerosis; G47.419 Narcolepsy without cataplexy; I67.1 Cerebral aneurysm, nonruptured; H02.401 Unspecified ptosis of right eyelid; H40.9 Unspecified glaucoma; H54.7 Unspecified visual loss; Z79.899 Other long term (current) drug therapy; Z87.891 Personal history of nicotine dependence; Z87.01 Personal history of pneumonia (recurrent)
CPT/HCPCS: 70544; 70546; 80048; 85025; 96365; 96375; 99284